=== PATIENT | female | born 1985 | race American Indian/Alaskan Native ===

== ENCOUNTER 2019-04-17 14:40 | Emergency (ER) | payer OTHER ==
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
--- NOTE | 2019-04-17 16:27 | Cat Scan Report ---
PROCEDURE: CT HEAD/BRAIN WO CON TECHNIQUE: Computerized tomography of the head was performed without contrast material. CT DOSE LENGTH PRODUCT: 1035.5 mGycm HISTORY: headache/loc COMPARISONS: None . FINDINGS: No CT evidence of intracranial mass, hemorrhage, acute territorial infarction, or hydrocephalus. Intr acranial arteries are symmetric in density. Calvarium is intact. Paranasal sinuses and mastoids are a erated. IMPRESSION: No CT evidence of acute abnormality . This document is electronically signed by Nina Burgos MD., April 17 2019 04:25:44 PM ET
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
--- NOTE | 2019-04-17 17:38 | Cat Scan Report ---
PROCEDURE: CT CERVICAL SPINE WO CON TECHNIQUE: Computerized tomography of the cervical spine was performed from the skull base to T1 wit hout contrast material. CT DOSE LENGTH PRODUCT: 561.4 mGycm HISTORY: headache/loc COMPARISONS: None . FINDINGS: Vertebral bodies demonstrate normal height and alignment. Disc spaces are within normal limits. The facet joints demonstrate normal alignment. Spinous processes are intact. Paravertebral soft tissues are unremarkable.. IMPRESSION: No significant abnormality . This document is electronically signed by Geraldo Atwood MD., April 17 2019 05:36:18 PM ET
[2019-04-17] MEDS ORDERED: IBUPROFEN PO ONE (18:31)
[2019-04-17 18:44] VITALS: BP 133/61
== END 2019-04-17 18:44 | disposition home or self-care (01) ==
LOC: ED 14:40
DX: S29.012A Strain of muscle and tendon of back wall of thorax, initial encounter (principal); S16.1XXA Strain of muscle, fascia and tendon at neck level, initial encounter; R51 Headache; Z90.49 Acquired absence of other specified parts of digestive tract; Z79.899 Other long term (current) drug therapy; V49.49XA Driver injured in collision with other motor vehicles in traffic accident, initial encounter; Y93.89 Activity, other specified; Y92.488 Other paved roadways as the place of occurrence of the external cause; Y99.8 Other external cause status
CPT/HCPCS: 70450; 72125